=== PATIENT | male | born 1960 | race Caucasian/White ===

== ENCOUNTER 2024-07-06 06:16 | Day surgery (SDC) | payer BC ==
[2024-07-06] MEDS: Lactated Ringers 1,000 ML IV SCH (06:18)
[2024-07-06] MEDS ORDERED: propofoL 500 MG/50 ML 50 ML ONE (07:36)
[2024-07-06] MEDS ORDERED: Propofol 200 MG/20 ML SDV ONE (08:31)
[2024-07-06] MEDS ORDERED: Lactated Ringers 1,000 ML IV SCH (09:00)
== END 2024-07-06 09:25 | disposition home or self-care (01) ==
LOC: MW.SDS 06:16
PROVIDERS: ATTEND Surgery
DX: D12.4 Benign neoplasm of descending colon (principal); D12.5 Benign neoplasm of sigmoid colon; D12.8 Benign neoplasm of rectum; K57.31 Diverticulosis of large intestine without perforation or abscess with bleeding; Z86.0100 Personal history of colon polyps, unspecified
CPT/HCPCS: 45385; 82947; J2704; J7120; 00811